=== PATIENT | female | born 1955 | race Caucasian/White ===

== ENCOUNTER → 2021-08-27 | Day surgery (SDC) | payer MEDICARE ==
[~2021-08-27] VITALS: Ht 172.7 cm; Wt 115.7 kg
[~2021-08-27] MED LIST: ALLEGRA ALLERG180 MG PO; ASPIRIN EC81 MG PO; ATORVASTATIN CA20 MG PO; DESYREL50 MG PO; DULOXETINE HCL60 MG PO; LASIX40 MG PO; METOPROLOL SUCC50 MG PO; PANTOPRAZOLE SO40 MG PO; SYNTHROID50 MC1 PO; VITAMIN D350 MC3 PO; WARFARIN SODIUM5 MG PO
[2021-08-27 08:54] LABS: HCT 39.4 % (37.0-47.0); HGB 12.6 g/dl (12.5-16.0); MCH 30.5 pg (25.0-31.0); MCV 95.4 fL (78.0-100.0); MPV 8.7 fL (6.0-9.5); RBC 4.13 M/uL (4.20-5.40); RDW 14.4 % (11.5-14.0)
[2021-08-27 09:10] LABS: INR 1.14 (0.9-1.2); PTT 23.7 SECONDS (24.4-34.7)
[2021-08-27 09:17] LABS: ALBUMIN 3.4 g/dL (3.4-5.0); BUN/CREAT RATIO (CALC) 24.2 RATIO; CREATININE 0.91 mg/dL (0.51-0.95); GLOBULIN (CALCULATION) 3.7 g/dL; POTASSIUM 4.4 mmol/L (3.5-5.1); TOTAL PROTEIN 7.1 g/dL (6.4-8.2)
== END | disposition home or self-care (01) ==
LOC: FAS 08:03
PROVIDERS: Orthopaedic Surgery
DX: M75.121 Complete rotator cuff tear or rupture of right shoulder, not specified as traumatic (principal); S43.431A Superior glenoid labrum lesion of right shoulder, initial encounter; M75.51 Bursitis of right shoulder; M25.811 Other specified joint disorders, right shoulder; I10 Essential (primary) hypertension; Z88.8 Allergy status to other drugs, medicaments and biological substances; I48.91 Unspecified atrial fibrillation; Z95.0 Presence of cardiac pacemaker; K21.9 Gastro-esophageal reflux disease without esophagitis; E03.9 Hypothyroidism, unspecified; G47.33 Obstructive sleep apnea (adult) (pediatric); Z79.01 Long term (current) use of anticoagulants; Z79.82 Long term (current) use of aspirin; Z79.899 Other long term (current) drug therapy; X58.XXXA Exposure to other specified factors, initial encounter
CPT/HCPCS: 36415; 71045; 80053; 85610; 85730; 93005; C1713; J0171; J0690; J1100; J2250; J2405; J2710; J2795; J3010; J7120